=== PATIENT | male | born 1935 | race Caucasian/White ===

== ENCOUNTER 2018-07-06 17:00 | Inpatient (IN) | payer MEDICARE ==
[~2018-07-06] VITALS: Ht 179.1 cm; Wt 87.5 kg
[~2018-07-06 17:00] MED LIST: ACYC200C PO; ASPI-1159 PO; BUDE6HFA INH; FISH12002 PO; GARL600T2 PO; LOSA25TA12 PO; MULT-1008 PO; VITA1CAP16 PO; VITA400T9 PO; [UNRECOGNIZED DRUG - CODE] PO
[2018-07-06] MEDS ORDERED: ONDANSETRON HCL 4MG/2ML INJ IV STA (20:56)
[2018-07-06] MEDS ORDERED: SODIUM CHLORIDE 0.9% 1,000 ML IV ONE (20:56)
[2018-07-06] MEDS ORDERED: METRONIDAZOLE 500 MG PREMIX 100 ML IV ONE (21:00)
[2018-07-06] MEDS ORDERED: PIPERACILLIN/TAZ 3.375G PREMIX 50 ML IV ONE (21:00)
[2018-07-06 21:24] LABS: BASOPHILS % 0.5 % (0.0-2.0); EOSINOPHILS % 1.4 % (0.0-5.0); HEMATOCRIT. 38.7 % (42.0-52.0); HEMOGLOBIN. 12.9 g/dL (14.0-18.0); LYMPHOCYTES % 27.5 % (20.0-50.0); MEAN CORPUSCULAR HEMOGLOBIN 30.2 pg (28.0-32.0); MEAN CORPUSCULAR VOLUME 90.6 fL (80.0-94.0); MEAN PLATELET VOLUME 8.4 fl (7.4-10.4); MONOCYTES % 11.3 % (2.0-8.0); NEUTROPHILS % 59.3 % (40.0-76.0); PLATELET 233 x1000/uL (130-400); RED BLOOD CELL COUNT 4.27 mill/uL (4.7-6.1); RED CELL DISTRIBUTION WIDTH 13.9 % (11.6-14.6)
[2018-07-06 21:28] LABS: CHLORIDE 97 mEq/L (98-107)
[2018-07-06 21:32] LABS: PARTIAL THROMBOPLASTIN TIME 29.1 sec (23.4-31.0)
[2018-07-07 00:32] LABS: CLARITY URINE CLEAR (CLEAR); COLOR URINE YELLOW (YELLOW); KETONES URINE NEGATIVE (NEGATIVE); LEUKOCYTE ESTERASE URINE NEGATIVE (NEGATIVE); NITRITE URINE NEGATIVE (NEGATIVE); OCCULT BLOOD URINE NEGATIVE (NEGATIVE); PH URINE 5.5 (4.5-8.0); PROTEIN URINE NEGATIVE (NEGATIVE); SPECIFIC GRAVITY URINE 1.013 (1.005-1.030); UROBILINOGEN URINE 0.2 E.U./dL (0.2-1.0)
[2018-07-07 09:00] VITALS: BP 104/53
[2018-07-07 10:00] VITALS: BP 104/53
[2018-07-07] MEDS ORDERED: DEXT 5%/0.45% NACL 1000ML 1,000 ML IV SCH (13:38)
[2018-07-07] MEDS ORDERED: IPRATROPIUM/ALBUTEROL 0.5-3(2.5)MG/3ML NEB INH PRN (13:45)
[2018-07-07] MEDS ORDERED: ACETAMINOPHEN 325MG TABLET PO PRN (13:45)
[2018-07-07] MEDS ORDERED: ONDANSETRON HCL 4MG/2ML INJ IV PRN (13:45)
[2018-07-07] MEDS: PANTOPRAZOLE SODIUM 40 MG/VIAL IV SCH (14:48)
[2018-07-07] MEDS ORDERED: SODIUM POLYSTYRENE SULFONATE 15 G/60 ML BOT PO NR (15:00)
[2018-07-07] MEDS ORDERED: METRONIDAZOLE 500 MG PREMIX 100 ML IV SCH (15:00)
[2018-07-07 15:31] LABS: BASOPHILS % 0.5 % (0.0-2.0); EOSINOPHILS % 1.5 % (0.0-5.0); HEMATOCRIT. 36.9 % (42.0-52.0); HEMOGLOBIN. 12.2 g/dL (14.0-18.0); LYMPHOCYTES % 22.7 % (20.0-50.0); MEAN CORPUSCULAR HEMOGLOBIN 30.3 pg (28.0-32.0); MEAN CORPUSCULAR VOLUME 91.6 fL (80.0-94.0); MONOCYTES % 10.6 % (2.0-8.0); NEUTROPHILS % 64.7 % (40.0-76.0); PLATELET 230 x1000/uL (130-400); RED BLOOD CELL COUNT 4.03 mill/uL (4.7-6.1); RED CELL DISTRIBUTION WIDTH 13.8 % (11.6-14.6)
[2018-07-07 18:05] LABS: HEPATITIS B SURFACE ANTIGEN NEGATIVE
[2018-07-07] MEDS: DEXT 5%/0.9% NACL 1,000 ML IV SCH (18:34)
[2018-07-07 20:00] VITALS: BP 110/62
[2018-07-07 22:04] LABS: CLARITY URINE CLEAR (CLEAR); COLOR URINE YELLOW (YELLOW); KETONES URINE TRACE (NEGATIVE); LEUKOCYTE ESTERASE URINE NEGATIVE (NEGATIVE); NITRITE URINE NEGATIVE (NEGATIVE); OCCULT BLOOD URINE NEGATIVE (NEGATIVE); PROTEIN URINE NEGATIVE (NEGATIVE); SPECIFIC GRAVITY URINE 1.013 (1.005-1.030); UROBILINOGEN URINE 0.2 E.U./dL (0.2-1.0)
[2018-07-08] VITALS: BP 118/64
[2018-07-08] MEDS: METRONIDAZOLE 500 MG PREMIX 100 ML IV SCH ×3 (01:40→17:52)
[2018-07-08 04:00] VITALS: BP 110/73
[2018-07-08] MEDS: DEXT 5%/0.9% NACL 1,000 ML IV SCH ×3 (04:36→15:58)
[2018-07-08 06:07] LABS: BASOPHILS % 0.8 % (0.0-2.0); EOSINOPHILS % 2.8 % (0.0-5.0); HEMOGLOBIN. 11.3 g/dL (14.0-18.0); LYMPHOCYTES % 31.8 % (20.0-50.0); MEAN CORPUSCULAR HEMOGLOBIN 30.7 pg (28.0-32.0); MEAN CORPUSCULAR VOLUME 91.8 fL (80.0-94.0); MEAN PLATELET VOLUME 8.9 fl (7.4-10.4); MONOCYTES % 12.7 % (2.0-8.0); NEUTROPHILS % 51.9 % (40.0-76.0); PLATELET 212 x1000/uL (130-400); RED CELL DISTRIBUTION WIDTH 13.8 % (11.6-14.6)
[2018-07-08 06:46] LABS: CHLORIDE 109 mEq/L (98-107)
[2018-07-08 06:56] LABS: LDL CHOLESTEROL 85 mg/dL (5-100); PHOSPHORUS 2.6 mg/dL (2.5-4.9)
[2018-07-08 06:58] LABS: HDL CHOLESTEROL 38 mg/dL (40-59)
[2018-07-08 06:59] LABS: T4 FREE 1.24 ng/dL (0.76-1.46)
[2018-07-08 08:00] VITALS: BP 108/71
[2018-07-08] MEDS: PANTOPRAZOLE SODIUM 40 MG/VIAL IV SCH (09:17)
[2018-07-08 12:47] VITALS: BP 110/68
[2018-07-08] MEDS ORDERED: HYDROCODONE/ACETAMINOPHEN 5/325MG TABLET PO PRN (15:15)
[2018-07-08] MEDS ORDERED: DIPHENHYDRAMINE 50MG/ML VIAL IV PRN (15:15)
[2018-07-08] MEDS ORDERED: DOCUSATE SODIUM 100MG CAPSULE PO PRN (15:15)
[2018-07-08] MEDS ORDERED: SIMETHICONE 80MG TABLET CHEW PO PRN (15:15)
[2018-07-08] MEDS ORDERED: MAGNESIUM/ALUMINUM HYDROXIDE/SIMETHICONE 30ML UDC PO PRN (15:15)
[2018-07-08 16:24] VITALS: BP 119/69
[2018-07-08 20:00] VITALS: BP 109/62
[2018-07-09] VITALS (7 sets, daily range): BP systolic 111–144; BP diastolic 68–84
[2018-07-09] MEDS: METRONIDAZOLE 500 MG PREMIX 100 ML IV SCH ×3 (01:55→18:00)
[2018-07-09 07:34] LABS: BASOPHILS % 0.7 % (0.0-2.0); EOSINOPHILS % 2.1 % (0.0-5.0); HEMATOCRIT. 33.4 % (42.0-52.0); HEMOGLOBIN. 10.9 g/dL (14.0-18.0); LYMPHOCYTES % 33.6 % (20.0-50.0); MEAN CORPUSCULAR VOLUME 91.6 fL (80.0-94.0); MEAN PLATELET VOLUME 8.9 fl (7.4-10.4); MONOCYTES % 11.1 % (2.0-8.0); NEUTROPHILS % 52.5 % (40.0-76.0); PLATELET 211 x1000/uL (130-400); RED BLOOD CELL COUNT 3.65 mill/uL (4.7-6.1); RED CELL DISTRIBUTION WIDTH 13.5 % (11.6-14.6)
[2018-07-09 07:40] LABS: PHOSPHORUS 1.9 mg/dL (2.5-4.9)
[2018-07-09] MEDS: PANTOPRAZOLE SODIUM 40 MG/VIAL IV SCH (08:06)
[2018-07-09 09:06] LABS: *CREATININE RANDOM URINE 64.6 mg/dL (Not Estab.); MICROALBUMIN RANDOM URINE 9.4 ug/mL (Not Estab.)
[2018-07-09] MEDS ORDERED: SIMETHICONE 80MG TABLET CHEW PO PRN (11:30)
[2018-07-09] MEDS ORDERED: SIMETHICONE 80MG TABLET CHEW PO SCH (14:00)
[2018-07-09] MEDS: POTASSIUM PHOS,M-BASIC-D-BASIC 20 MMOL in DEXT 5% WATER 243.3333 ML IV ONE ×2 (15:00→15:59)
[2018-07-10] VITALS: BP 153/75
[2018-07-10 04:00] VITALS: BP 133/80
[2018-07-10 07:11] LABS: BASOPHILS % 0.5 % (0.0-2.0); EOSINOPHILS % 1.6 % (0.0-5.0); HEMATOCRIT. 33.7 % (42.0-52.0); MEAN CORPUSCULAR HEMOGLOBIN 29.9 pg (28.0-32.0); MEAN CORPUSCULAR VOLUME 91.4 fL (80.0-94.0); MEAN PLATELET VOLUME 8.8 fl (7.4-10.4); MONOCYTES % 9.2 % (2.0-8.0); NEUTROPHILS % 55.7 % (40.0-76.0); PLATELET 219 x1000/uL (130-400); RED BLOOD CELL COUNT 3.69 mill/uL (4.7-6.1); RED CELL DISTRIBUTION WIDTH 13.6 % (11.6-14.6)
[2018-07-10 07:28] LABS: PHOSPHORUS 1.9 mg/dL (2.5-4.9)
[2018-07-10 08:00] VITALS: BP 134/67
[2018-07-10 09:07] LABS: COMPLEMENT C3 89 mg/dL (82-167)
[2018-07-10] MEDS: METRONIDAZOLE 500 MG PREMIX 100 ML IV SCH ×2 (10:00→17:21)
[2018-07-10 10:10] LABS: ALBUMIN 2.5 g/dL (2.9-4.4); ALPHA-1-GLOBULIN 0.2 g/dL (0.0-0.4); ALPHA-2-GLOBULIN 0.7 g/dL (0.4-1.0); BETA GLOBULIN 0.8 g/dL (0.7-1.3); GAMMA GLOBULINS 0.9 g/dL (0.4-1.8); GLOBULIN TOTAL 2.6 g/dL (2.2-3.9); M-SPIKE Not Observed g/dL (Not Observed); TOTAL PROTEIN SERUM 5.1 g/dL (6.0-8.5)
[2018-07-10] MEDS: PANTOPRAZOLE SODIUM 40 MG/VIAL IV SCH (10:35)
[2018-07-10 12:00] VITALS: BP 121/73
[2018-07-10 13:06] LABS: ANTI-PROTEINASE 3 ABS < 3.5 U/mL (0.0-3.5)
[2018-07-10 14:11] LABS: ANTI-MYELOPEROXIDASE AB < 9.0 U/mL (0.0-9.0); ATYPICAL P-ANCA <1:20 titer (Neg:<1:20); CYTOPLASMIC C-ANCA <1:20 titer (Neg:<1:20); PERINUCLEAR P-ANCA <1:20 titer (Neg:<1:20)
[2018-07-10 16:00] VITALS: BP 145/75
[2018-07-11] MEDS ORDERED: FAMOTIDINE 20MG TABLET PO SCH (09:00)
== END 2018-07-10 19:03 | DRG 377 ==
LOC: ER 19:28 → 8WST 23:33 → EDBEDREQ 23:46 → EDBEDREQTM 23:46 → ENRESERV 07-07 07:16 → CANRESERV 07-07 07:16
PROVIDERS: ADMIT Internal Medicine; ATTEND Internal Medicine
DX: K29.71 Gastritis, unspecified, with bleeding (principal); N17.0 Acute kidney failure with tubular necrosis; K86.1 Other chronic pancreatitis; K57.31 Diverticulosis of large intestine without perforation or abscess with bleeding; E11.22 Type 2 diabetes mellitus with diabetic chronic kidney disease; Z90.5 Acquired absence of kidney; N18.3 Chronic kidney disease, stage 3 (moderate); E87.5 Hyperkalemia; I12.9 Hypertensive chronic kidney disease with stage 1 through stage 4 chronic kidney disease, or unspecified chronic kidney disease; E86.0 Dehydration; D64.9 Anemia, unspecified; E03.9 Hypothyroidism, unspecified; M17.0 Bilateral primary osteoarthritis of knee; F10.20 Alcohol dependence, uncomplicated; N28.1 Cyst of kidney, acquired; Z79.899 Other long term (current) drug therapy; Z85.46 Personal history of malignant neoplasm of prostate; Z85.528 Personal history of other malignant neoplasm of kidney; Z87.11 Personal history of peptic ulcer disease; Z87.891 Personal history of nicotine dependence; Z90.49 Acquired absence of other specified parts of digestive tract; Z92.3 Personal history of irradiation; Z79.82 Long term (current) use of aspirin; Z79.84 Long term (current) use of oral hypoglycemic drugs
CPT/HCPCS: 36415; 71045; 74176; 76700; 80048; 80061; 80076; 82043; 82270; 82570; 83036; 83520; 83605; 83735; 83880; 84100; 84155; 84165; 84300; 84439; 84443; 84484; 86160; 86256; 86803; 87340; 93005; 93306; 93970; 96365; 97162; 99285; C1893; C9113; J2405; J2543; J3490; J7030; J7042; J7060